=== PATIENT | female | born 1970 | race Two or more races ===

== ENCOUNTER 2022-11-05 19:26 | Emergency (ER) | payer MEDICAID, OTHER ==
[~2022-11-05] VITALS: Ht 157.5 cm; Wt 66.8 kg
[2022-11-05 19:48] VITALS: BP 121/68; PULSE 73; RESP 16; TEMP 98.3; O2SAT 97
== END 2022-11-05 21:36 | disposition home or self-care (01) ==
LOC: ER 19:26
DX: M54.50 Low back pain, unspecified (principal); V89.2XXA Person injured in unspecified motor-vehicle accident, traffic, initial encounter; Y93.89 Activity, other specified; Y92.89 Other specified places as the place of occurrence of the external cause; Y99.8 Other external cause status
CPT/HCPCS: 71045; 72100